=== PATIENT | female | born 1960 | race Caucasian/White ===

== ENCOUNTER 2017-10-31 13:50 | Emergency (ER) | payer OTHER ==
[2017-10-31 14:07] VITALS: BP 138/97; TEMP 98.7; BMI 27.1
--- NOTE | 2017-10-31 14:38 | CT ---
EXAM: Noncontrast CT of the paranasal sinuses HISTORY: Sinus congestion COMPARISON: 10/12/[address] TECHNIQUE: Noncontrast CT of the paranasal sinuses FINDINGS: The bilateral frontal sinuses are well-aerated with patent outflow tracts. There is moderate right m axillary sinus mucosal thickening with a suspected mucous retention cyst or polyp measuring 1.6 cm. A right maxillary sinus air-fluid level is also present. The right maxillary sinus outflow tract is obstructed. There is mild left maxillary sinus mucosal thickening with obstruction of the outflow tr act. There is mild bilateral sphenoid sinus mucosal thickening with obstruction of the outflow tract s. There is a left sphenoid sinus air-fluid level. There is mild to moderate bilateral ethmoid air cell mucosal thickening. The visualized portions of the mastoid air cells are well-aerated. The nasa l septum mildly deviates to the right. Operative change of the right sided calvarium are seen. IMPRESSION: Moderate paranasal sinus disease as described above, including right maxillary and left sphenoid acut e sinusitis.
--- NOTE | 2017-10-31 14:39 | CT ---
EXAM: CT BRAIN HISTORY: Fall TECHNIQUE: CT brain without intravenous contrast. 5-mm axial sections with Reformations. COMPARISON: 10/12/2010 FINDINGS: There is generalized atrophy. Stable mild ventriculomegaly which may in part be related to the degre e of atrophy. These findings are stable. Brain otherwise is unremarkable without evidence of hemorrhage or large vessel distribution recent is chemic infarction. There is no suggestion of acute hydrocephalus or subdural fluid collection. No m ass or mass effect. Redemonstration of postop changes of the right frontal temporal bone which are stable. No acute skul l fracture is seen. Mastoid processes are aerated. There is diffuse mild mucosal thickening of the paranasal sinuses. Fluid is seen within the right maxillary sinus possibly related to acute paranasa l sinusitis. IMPRESSION: No acute intracranial process or injury. No skull fracture.
--- NOTE | 2017-10-31 14:42 | CT ---
EXAM: Noncontrast CT of the chest HISTORY: Cough COMPARISON: 09/25/2014 chest x-ray TECHNIQUE: Noncontrast CT of the chest FINDINGS: A 2 mm right lower lobe pulmonary nodule si seen on axial image 42. There is mild bilateral upper lob e and lower lobe dependent atelectasis. There is additional minimal right lower lobe nondependent at electasis. No focal consolidation, pleural effusion or pneumothorax is seen. Heart size is normal. Atherosclerotic calcifications are present including coronary arteries. No med iastinal lymphadenopathy is seen. Calcified mediastinal and right hilar lymph nodes are present. The re is a right thyroid lobe nodule measuring approximately 1.3 cm. There is a remote left clavicle fracture. IMPRESSION: No acute cardiopulmonary findings. Mild atelectasis. Atherosclerosis including coronary arteries. 2 mm right lower lobe pulmonary nodule. If the patient is high risk, a follow-up CT in 12 months cou ld be considered. Right thyroid lobe nodule measuring approximately 1.3 cm. Follow-up thyroid ultrasound is recommende d. Evidence of prior granulomatous infection.
--- NOTE | 2017-10-31 15:02 | ED.PDOC ---
General ED Provider: Dr. KARISSA COOK-ER Chief Complaint: Cough Stated Complaint: penny been coughing--i smoke Time Seen by Physician: 13:55 Mode of Arrival: Walk-In Information Source: Patient, Family Exam Limitations: No limitations Primary Care Provider: COURTNEY DE LOS SANTOS Nursing and Triage Documentation Reviewed and Agree: Yes Reviewed sepsis parameters & appropriate labs ordered?: Yes System Inflammatory Response Syndrome: Not Applicable Sepsis Protocol: For patient's 13 years and over: Temp is 96.8 and below OR 101 and greater Pulse >90 BPM Resp >20/minute Acutely Altered Mental Status Are patient's symptoms suggestive of a new infection, such as: -Pneumonia -Skin, Soft Tissue -Endocarditis -UTI -Bone, Joint Infection -Implantable Device -Acute Abdominal Infection -Wound Infection -Meningitis -Blood Stream Catheter Infection -Unknown Respiratory Complaint Exam - Respiratory Complaint/Exam Onset/Duration: 7 days Symptoms Are: Still present Timing: Intermittent Initial Severity: Mild Current Severity: Moderate Location: Nose, Chest Character: Reports: Productive cough Aggravating: Reports: URI Alleviating: Reports: None. Denies: Antibiotics Associated Signs and Symptoms: Reports: URI, Nasal congestion, Sinus discomfort. Denies: Rapid breathing, Dyspnea, Fever, Chills, Pleuritic chest pain, Wheezing, Hemoptysis, Dizziness, Calf pain, Calf swelling, Edema, Hoarseness, Vomiting, Sore throat, Weight loss, Decreased oral intake, Increased thirst, Increased appetite, Increased urination History of Healthcare-Acquired Pneumonia: No Status Asthmaticus Risk Factors: Reports: None Home Oxygen Use: No Recent Stress Test: No Recent Echo/LV Function: No Current Antibiotic Use: No Current Asthma Medication Use: No Respiratory Distress: None Inadequate Respiratory Effort: No Dysphagia Present: No Stridor Present: No JVD Present: No Accessory Muscle Use: No Retractions: Not Present Diminished Breath Sounds: No Sinus Tenderness: Maxillary Grunting Respirations: No Kussmaul Respirations: No Differential Diagnoses: Pneumonia, Bronchitis Review of Systems - Review Of Systems Constitutional: Reports: No symptoms Eyes: Reports: No symptoms Ears, Nose, Mouth, Throat: Reports: Nose discharge Respiratory: Reports: Cough Cardiac: Reports: No symptoms GI: Reports: No symptoms : Reports: No symptoms Musculoskeletal: Reports: No symptoms Skin: Reports: No symptoms Neurological: Reports: No symptoms Endocrine: Reports: No symptoms Hematologic/Lymphatic: Reports: No symptoms All Other Systems: Reviewed and Negative Past Medical History - Past Medical History Previously Healthy: No Endocrine: Reports: Unknown Cardiovascular: Reports: Unknown Respiratory: Reports: Unknown Hematological: Reports: Unknown Gastrointestinal: Reports: Unknown Genitourinary: Reports: Unknown Neuro/Psych: Reports: Unknown Musculoskeletal: Reports: Unknown Cancer: Reports: Unknown Last Menstrual Period: hysterectomy - Surgical History General Surgical History: Reports: Hysterectomy - Family History Family History: Reports: Unknown - Social History Smoking Status: Current every day smoker, Light tobacco smoker Hx Substance Use: No Alcohol Screening: Occasionally Physical Exam - Physical Exam Appearance: Well-appearing, No pain distress, Well-nourished Eyes: LORI, EOMI, Conjunctiva clear ENT: Rhinorrhea Neck: Supple Respiratory: Rhonchi Cardiovascular: RRR GI/: Soft, Nontender, No masses, Bowel sounds normal, No Organomegaly Musculoskeletal: Normal strength Skin: Warm, Dry, Normal color Neurological: Sensation intact, Motor intact, Reflexes intact, Cranial nerves intact, Alert, Oriented Psychiatric: Affect appropriate, Mood appropriate Interpretation - Radiology Interpretation Radiology Interpretation By: Radiologist Radiology Results: Positive Exam Interpreted: CT Scan Critical Care Note - Critical Care Note Total Time (mins): 0 Course - Course Orders, Labs, Meds: Orders Category Date Time Status CT CHEST W/O CONTRAST Stat RADS 10/31/17 14:[address] HEAD W/O CONTRAST Stat RADS 10/31/17 14:[address] SINUSES W/O CONTRAST Stat RADS 10/31/17 14:13 Completed Vital Signs: Temp Pulse Resp BP Pulse Ox 10/31/17 13:52 98.7 F 101 H 20 138/97 H 93 L Departure - Departure Time of Disposition: 15:02 Disposition: HOME SELF-CARE Discharge Problem: Tobacco abuse, Lung nodule, Thyroid nodule Sinusitis Qualifiers: Sinusitis location: unspecified location Chronicity: acute Recurrence: non- recurrent Qualified Code(s): J01.90 - Acute sinusitis, unspecified Instructions: Sinusitis (ED) Condition: Good Pt referred to PMD for follow-up: Yes IPMP verified?: No Additional Instructions: augmentin 875mg bid x 10 days==medrol dose pack--tessalon perles 200mg tid prn cough --stop smoking--f/u with dr de los santos next week to discuss lung and thyroid nodule f/u Allergies/Adverse Reactions: Allergies antidepressant Adverse Reaction (Uncoded 10/31/17 14:06) Home Medications: Ambulatory Orders 1 [Unobtainable] 10/31/17 Disposition Discussed With: Patient, Family
== END 2017-10-31 15:23 | disposition home or self-care (01) ==
LOC: ED 13:50
DX: J01.90 Acute sinusitis, unspecified (principal); R91.1 Solitary pulmonary nodule; E04.1 Nontoxic single thyroid nodule; R05 Cough; F17.210 Nicotine dependence, cigarettes, uncomplicated
CPT/HCPCS: 99283

== ENCOUNTER 2017-11-17 10:21 | Outpatient (CLI) ==
--- NOTE | 2017-11-17 11:36 | US ---
EXAM: Thyroid ultrasound History: Thyroid nodules. Comparison: Chest CT 10/31/2017 Technique: Multiple sonographic images through the thyroid gland were obtained. Color duplex Dopple r was used to interrogate vascular flow. Findings: The right lobe of the thyroid measures 4.8 cm x 1.7 cm x 1.8 cm and demonstrates a dominant 1.8 cm so lid nodule containing microcalcifications. Thyroid isthmus measures 0.3 cm in thickness. The left lobe of the thyroid measures 4.8 cm x 1.3 cm x 1.2 cm and demonstrates a 1.4 cm complex nodu le containing microcalcifications. No extrathyroidal masses are identified. The thyroid gland is not hypervascular. Impression: Dominant bilateral thyroid nodules as detailed above containing microcalcifications. Ti ssue sampling is recommended for both.
== END 2017-11-17 10:22 | disposition home or self-care (01) ==
LOC: RAD 10:21
PROVIDERS: ATTEND Family Medicine
DX: E04.1 Nontoxic single thyroid nodule (principal)

== ENCOUNTER 2018-03-04 09:04 | Outpatient (CLI) ==
[2018-03-04] MEDS ORDERED: ALBUTEROL 0.083% NEB NEB STA (09:28)
== END 2018-03-04 09:05 | disposition home or self-care (01) ==
LOC: CAR 09:04
PROVIDERS: ATTEND Family Medicine
DX: G50.0 Trigeminal neuralgia (principal); I50.32 Chronic diastolic (congestive) heart failure

== ENCOUNTER 2018-03-24 13:44 | Emergency (ER) | payer OTHER ==
[2018-03-24 13:51] VITALS: BP 121/82; TEMP 99.2; BMI 29.4
--- NOTE | 2018-03-24 14:33 | DI ---
EXAM: Three views of the left ankle HISTORY: Fall. COMPARISON: None FINDINGS: There is no cortical irregularity or displaced fracture of the left ankle. The joint space s maintained. Soft tissues are normal. There is no lytic or blastic lesion. There is soft tissue s welling of the lateral foot. The hind foot structures are unremarkable. IMPRESSION: No acute abnormality or displaced fracture of the left ankle with lateral foot swelling.
--- NOTE | 2018-03-24 14:35 | DI ---
Exam: Three views of the left foot. Comparison: None available. Reason for exam: Fall. FINDINGS: No acute fracture or malalignment. The joint spaces appear well maintained. No unexplain ed calcific soft tissue density or radiopaque retained foreign body. Impression: No acute fracture or dislocation is seen in the left foot.
--- NOTE | 2018-03-24 14:48 | ED.PDOC ---
General ED Provider: Dr. MAHNAZ PIRES Chief Complaint: Foot Pain/Injury Stated Complaint: foot/ ankle pain Time Seen by Physician: 14:00 (seen with nicky fu RN AT ALL TIMES ) Mode of Arrival: Walk-In Information Source: Patient Exam Limitations: No limitations Primary Care Provider: COURTNEY HENRY Nursing and Triage Documentation Reviewed and Agree: Yes Does patient meet sepsis criteria?: No System Inflammatory Response Syndrome: Not Applicable (NO ADDITIONAL INJURY OFFERED ) Sepsis Protocol: For patient's 13 years and over: Temp is 96.8 and below OR 101 and greater Pulse >90 BPM Resp >20/minute Acutely Altered Mental Status Are patient's symptoms suggestive of a new infection, such as: -Pneumonia -Skin, Soft Tissue -Endocarditis -UTI -Bone, Joint Infection -Implantable Device -Acute Abdominal Infection -Wound Infection -Meningitis -Blood Stream Catheter Infection -Unknown Musculoskeletal Complaint Exam - Ankle/Foot Complaint/Exam Location of Injury: Reports: Left, Ankle, Foot Mechanism of Injury: Reports: Trauma (BLUNT FORCE ) Onset/Duration: TODAY AT HOME BATH ROOM COMMODE Symptoms Are: Reports: Still present Onset of Pain: Reports: Immediate Initial Severity: Moderate Current Severity: Mild Location: Reports: Discrete (DORSAL LEFT FOOT MOSTLY) Character: Reports: Aching Aggravating: Reports: Movement Able to Bear Weight: Yes Associated Signs and Symptoms: Reports: Swelling, Redness, Bruising (FOOT DORSUM ONLY). Denies: Fever, Weakness, Numbness, Tingling Gout Risk Factors: Reports: >40 years old Related Surgical History: Reports: None Lower Extremity Findings: Present: Swelling, Ecchymosis Achilles Tendon Abnormality: No Tenderness: Present: Lateral malleolus, Midfoot Differential Diagnosis: Closed Fracture Review of Systems - Review Of Systems Constitutional: Reports: No symptoms Eyes: Reports: No symptoms Ears, Nose, Mouth, Throat: Reports: No symptoms Respiratory: Reports: No symptoms Cardiac: Reports: No symptoms GI: Reports: No symptoms : Reports: No symptoms Musculoskeletal: Reports: No symptoms Skin: Reports: Bruising (OF FOOT ) Neurological: Reports: No symptoms Endocrine: Reports: No symptoms Hematologic/Lymphatic: Reports: No symptoms All Other Systems: Reviewed and Negative Past Medical History - Past Medical History Previously Healthy: No Endocrine: Reports: Unknown Cardiovascular: Reports: Unknown Respiratory: Reports: Unknown Hematological: Reports: Unknown Gastrointestinal: Reports: Unknown Genitourinary: Reports: Unknown Neuro/Psych: Reports: Unknown Musculoskeletal: Reports: Unknown Cancer: Reports: Unknown Last Menstrual Period: hysterectomy - Surgical History General Surgical History: Reports: Hysterectomy - Family History Family History: Reports: Unknown - Social History Smoking Status: Current every day smoker, Light tobacco smoker Hx Substance Use: No Alcohol Screening: None Physical Exam - Physical Exam Appearance: Well-appearing, No pain distress, Well-nourished Eyes: LORI, EOMI, Conjunctiva clear ENT: Ears normal, Nose normal, Oropharynx normal Respiratory: Airway patent, Breath sounds clear, Breath sounds equal, Respirations nonlabored Cardiovascular: RRR, Pulses normal, No rub, No murmur GI/: Soft, Nontender, No masses, Bowel sounds normal, No Organomegaly Musculoskeletal: Normal strength, ROM intact, No edema, No calf tenderness Skin: Warm, Dry (CONTUSION LEFT FOOT) Neurological: Sensation intact, Motor intact, Reflexes intact, Cranial nerves intact, Alert, Oriented Psychiatric: Affect appropriate, Mood appropriate Interpretation - Radiology Interpretation Radiology Interpretation By: Radiologist Radiology Results: No acute changes Critical Care Note - Critical Care Note Total Time (mins): 0 Course - Course Orders, Labs, Meds: Orders Category Date Time Status ANKLE, LEFT MIN 3 VIEWS Stat RADS 03/24/18 14:10 Completed FOOT, LEFT 3 VIEWS Stat RADS 03/24/18 14:10 Completed Vital Signs: Temp Pulse Resp BP Pulse Ox 03/24/18 13:44 99.2 F 102 H 20 121/82 92 L Departure - Departure Time of Disposition: 14:48 Disposition: HOME SELF-CARE Discharge Problem: Contusion of left foot Qualifiers: Encounter type: initial encounter Qualified Code(s): S90.32XA - Contusion of left foot, initial encounter Instructions: Foot Contusion (ED) Condition: Good Pt referred to PMD for follow-up: Yes IPMP verified?: No Additional Instructions: Please call your Family Physician as soon as possible to schedule a follow-up appointment.PLEASE USE CRUTCHES AND SEEN YOUR MD Allergies/Adverse Reactions: Allergies antidepressant Adverse Reaction (Uncoded 10/31/17 14:06) Home Medications: Ambulatory Orders Diazepam [Valium] 10 mg PO TID 03/24/18 Gabapentin 300 mg PO DIRECTED 03/24/18 Levomilnacipran HCl [Fetzima] 80 mg PO BEDTIME 03/24/18 Oxycodone-Acetaminophen 10-325 [Percocet 10-325] 1 tab PO TID 03/24/18 Simvastatin 20 mg PO DAILY 03/24/18 Disposition Discussed With: Patient, Family
== END 2018-03-24 15:13 | disposition home or self-care (01) ==
LOC: ED 13:44
DX: S90.32XA Contusion of left foot, initial encounter (principal); W22.8XXA Striking against or struck by other objects, initial encounter; F17.210 Nicotine dependence, cigarettes, uncomplicated
CPT/HCPCS: 99283

== ENCOUNTER 2018-07-05 12:19 | Outpatient (CLI) | payer OTHER | END 2018-07-05 12:33 | disposition short-term general hospital (02) | LOC: AMBL 12:19 | PROVIDERS: ATTEND Internal Medicine | DX: I10 Essential (primary) hypertension (principal); R07.9 Chest pain, unspecified; Z79.899 Other long term (current) drug therapy ==

== ENCOUNTER 2018-07-27 09:36 | Outpatient (CLI) | payer OTHER ==
--- NOTE | 2018-07-27 10:11 | US ---
EXAM: Right upper quadrant abdominal ultrasound. History: Abdominal pain. Technique: Multiple sonographic images through the abdomen were obtained. Color duplex Doppler was used to interrogate vascular flow. Findings: The visualized pancreas demonstrates no abnormality. The liver is not enlarged. No focal liver lesi ons identified sonographically. There is antegrade flow within main portal vein. The liver is echog enic compared to the adjacent right renal cortex. Limited visualization of the right kidney demonstrates no abnormality. No shadowing gallstones. Gallbladder wall is not thickened. Common bile duct measures 0.3 cm in kanika iber. Impression: 1. No acute sonographic findings. 2. Hepatic steatosis
--- NOTE | 2018-07-28 08:50 | MAMMO ---
EXAM: Bilateral digital screening mammogram (2-D and 3-D) History: Screening Comparison: Bilateral mammogram 07/09/2011 Findings: MLO and CC views of bilateral breasts demonstrate heterogeneously dense breast parenchyma which can obscure small lesions. CAD was reviewed by the radiologist. Tomosynthesis was performed. Stable benign bilateral breast calcifications. Focal asymmetry within the right breast near the axi llary tail and only seen on the MLO view. Impression: Indeterminate right breast asymmetry in the axillary tail and only seen on the MLO view. Recommend further evaluation with spot compression views with tomosynthesis and a ML view with alysha synthesis. BIRADS 0, incomplete, needs further evaluation
== END 2018-07-27 09:37 | disposition home or self-care (01) ==
LOC: RAD 09:36
PROVIDERS: ATTEND Family Medicine
DX: Z12.31 Encounter for screening mammogram for malignant neoplasm of breast (principal); R10.9 Unspecified abdominal pain

== ENCOUNTER 2018-08-03 08:03 | Outpatient (CLI) ==
--- NOTE | 2018-08-03 10:35 | NM ---
Exam: Hepatobiliary scan. Date: 08/03/2018. Comparison: None. HISTORY: Abdominal pain. TECHNIQUE: The patient was injected 5 mCi of technetium 99m mebrofenin and imaging over the abdomen was obtained for 1 hour. The patient was then orally administered 12 ounces of Boost Plus and imagin g carried out for additional 30 minutes. Gallbladder ejection fraction was calculated. FINDINGS: There is prompt uptake extraction and excretion of the radiotracer by the hepatocytes. Ac tivity is identified in the small bowel by 10 minutes and in the gallbladder by 20 minutes. The gall bladder ejection fraction is 40%. Impression: Normal hepatobiliary scan and gallbladder ejection fraction.
== END 2018-08-03 08:04 | disposition home or self-care (01) ==
LOC: RAD 08:03
PROVIDERS: ATTEND Family Medicine
DX: R10.9 Unspecified abdominal pain (principal)

== ENCOUNTER 2018-08-25 09:56 | Outpatient (CLI) | payer OTHER ==
--- NOTE | 2018-08-25 11:25 | US ---
EXAM: Digital diagnostic right breast mammogram and ultrasound. HISTORY: Right breast nodule COMPARISON: Mammogram 07/27/2018 FINDINGS: There is the nodule in the posterior right breast redemonstrated with central area of fat. No additi onal abnormality is identified. Ultrasound demonstrates a peripherally hypoechoic centrally hyperechoic nodule at two to three o'cloc k 10 cm from the nipple measuring 1.5 x 0.6 x 0.8 cm. There is color Doppler noted centrally in the vascular stalk. This is most consistent with a lymph node. IMPRESSION: Findings are consistent with a intramammary lymph node RECOMMENDATION: Returned to normal screening mammogram BIRADS category II: Benign findings
== END 2018-08-25 09:57 | disposition home or self-care (01) ==
LOC: RAD 09:56
PROVIDERS: ATTEND Family Medicine
DX: R92.2 Inconclusive mammogram (principal)

== ENCOUNTER 2018-09-28 14:00 | Outpatient (RCR) ==
--- NOTE | 2018-09-22 09:24 | RS.OPPTEV2 ---
Date of Note: 09/21/18 Visit #: 1 Number of visits approved by Insurance: n/a Date of Evaluation: 09/21/18 Payer Source: MEDICARE Surgery Performed?: No Treatment Diagnosis: low back pain History of Condition/Mechanism of Injury:: pt with history of LBP which began approx 1 month ago. No definite injury noted Prior Level of Function.....Patient was independent with: Work/Vocation, Ambulation/Mobility, Community Integration/Access Functional Limitations: Reaching, Pushing, Standing, Bending, Squatting, Ambulation Current Subjective/complaints:: pt states that she has had low back pain which has caused her RLE to "kick by itself" States she hurts mostly when she is standing/walking. Treatment Side (optional): N/A *Precautions: n/a Medical History Medical History: Hypertension, Arthritis Medical History Comments:: trigeminal neuralgia Surgical History: Hysterectomy Surgical History Comments:: stapedectomy left and right, craniotomy 2009 Hx Home Medications: oxycodone, valium, as well as multiple other meds, pt unable to name all at this time Patient's Goals: decrease low back pain Pain Assessment - Pain Description Pain Location: low back pain Pain Description: Aching Current Pain Intensity: 1 Worst Pain Intensity: 10 Functional Outcome Measure Oswestry LBP: 37 - G Codes & Severity Modifier G Codes & Modifier: n/a Source of G Code score: n/a Observation - Observation Inspection: piriformis tight BLE. RLE longer than LLE. pt appears possibly overmedicated Posture: Forward Head, Rounded Shoulders, Increased Thoracic Kyphosis Comments: pt stands with hips and knees flexed she reports is due to pain. Handedness: Right Gait - Gait Pattern General Gait Pattern Observation: Decrease Stride Lngth (R), Decrease Stride Lngth (L) Gait Comments: pt amb with decreased step length, flexed posture, General Range of Motion: BUE WFL's with pain with shld flex. BLE WFL's with pain with knee ROM Muscle Strength: BUE shld flex 4-/5, elbow flex/ext 4+/5. BLE hip flex 4/5, knee flex 4+/5, ext 4/5, ankle Df/PF 4/5 - ROM Lumbar Flexion: Hand reach to patellae Sidebending to Left: Reach to Lateral Joint Line Sidebending to Right: Reach to Lateral Joint Line Lumbar Spine ROM Limitations: Soft Tissue Tightness, Muscle Weakness, Pain - Strength Trunk Extension: 4- Good- Trunk Flexion: 4- Good- Trunk Lateral Flexion: 4- Good- Trunk Rotation: 4- Good- - Special Tests AAMIR Test: Positive Left, Positive Right SLR Test: Positive Left, Positive Right SI Joint Compression: Positive Palpation Palpation Findings: Tenderness, Trigger Point, Muscle Guarding Comments:: pt with tenderness, muscle guarding lower lumbar upper sacral area with trigger points noted in R SI joint Sensation - Sensation Right Upper Extremity: Intact/Normal Left Upper Extremity: Intact/Normal Right Lower Extremity: Intact/Normal Left Lower Extremity: Intact/Normal Balance - Sitting Balance Static Sitting Balance: Good Dynamic Sitting Balance: Good - Standing Balance Static Standing Balance: Good Dynamic Standing Balance: Fair - Heat/Cryotherapy Treatment: Hot Pack Comments:: lumbar Interventions - Exercise/Activities/Manual Therapy Exercises/Activities: pt performed pelvic tilt, knee to chest, piriformis stretch. pt performed muscle energy with RLE in ext LLE in flex. Manual Therapy: n/a - Charges Timed Code Treatment Minutes: 46 Total Treatment Time: 61 Procedures billed for this date of service:: eval med, ex, hot pack EVALUATION COMPLEXITY LEVEL EVALUATION COMPLEXITY LEVEL: HISTORY: Medium, EXAM OF BODY SYSTEMS: Medium, CLINICAL PRESENTATION: Medium, CLINICAL DECISION MAKING: Medium Assessment Assessment: pt presents with low back pain which increases with lumbar ROM, BLE piriformis tightness, as well as leg length discrepancy RLE longer than LLE. pt also with decreased strength. Patient Education: Home Exercise Program, Education of Plan of Care Rehab Potential: Good Short Term Goals Goal #1: pt independent with initial HEP Goal to be met by: 10/12/18 Goal #2: pt with decreased piriformis tightness Goal to be met by: 10/12/18 Goal #3: Improve lumbar ROM WFL's w less pain Goal to be met by: 10/12/18 Goal #4: pt amb with improved posture without hips/knees flexed Detention Goals Goal #1: pt report ability to perform normal household duties w less pain Goal to be met by: 11/02/18 Goal #2: pt rate pain in lumbar spine <3/10 with activity Goal to be met by: 11/02/18 Plan - Treatment to be Provided Procedures: Therapeutic Exercises, Neuromuscular Rehab, Manual Therapy, Massage , Patient Education Modalities: Electrical Stimulation, Ultrasound/Phonophoresis, Cryotherapy, Hot Packs, Mechanical Traction - Treatment Plan Frequency: 2-3x a week Duration: 6 weeks Dates of Typing Secretary Goals: 11/02/18 Expiration date of current Insurance Approval:: n/a - Treatment Code (1) Low back pain Code(s): M54.5 - LOW BACK PAIN Qualifiers: Chronicity: chronic Back pain laterality: unspecified Sciatica presence: unspecified whether sciatica present Qualified Code(s): M54.5 - Low back pain ; G89.29 - Other chronic pain (2) Muscle tightness Code(s): M62.89 - OTHER SPECIFIED DISORDERS OF MUSCLE (3) Muscle weakness Code(s): M62.81 - MUSCLE WEAKNESS (GENERALIZED)
--- NOTE | 2018-09-23 16:08 | RS.OPPTDN ---
Subjective Date of Note: 09/23/18 Visit #: 2 Number of visits approved by Insurance: na Date of Evaluation: 09/21/18 Payer Source: MEDICARE Treatment Diagnosis: low back pain Current Subjective/complaints:: Patient reports soreness in the low back, pointing to the SI region when asked where she hurts.She reports not sleeping well due to pain,re-positions herself frequently. *Precautions: n/a Pain Assessment - Pain Description Pain Location: lumbar Pain Description: Dull, Aching Current Pain Intensity: 3/10 - Treatment Modality: Ultrasound Parameters/Method Applied: 10 mins.,continuous mode @ 1.5 w/cm2 ,to lumbar area. Patient Position: Left Sidelying - Heat/Cryotherapy Treatment: Hot Pack (20 mins. prior to US and exercises) Interventions - Exercise/Activities/Manual Therapy Exercises/Activities: 20 mins. pelvic tilt, SKTC,DKTC, 90/90 hamstring stretches ,piriformis stretch,LTR. Total minutes of Exercise: 20 Manual Therapy: n/a Total minutes of Manual Therapy: 0 HOME EXERCISE PROGRAM: Pelvic tilt,SKTC,DKTC,90/90 hamstring stretches , piriformis stretch,LTR. - Charges Timed Code Treatment Minutes: 30 Total Treatment Time: 50 Procedures billed for this date of service:: hp,US,ex Assessment: Patient tolerates the exercises well today,no elevation of back pain.She has good hamstring extensibility bilaterally.She s attentive to recom mendations for HEP and pain management. Patient Education: Education of diagnosis, Body/Joint mechanics, Home Exercise Program, Home Safety, Activity Modification, Education of Plan of Care Patient demonstrates compliance with HEP?: Yes Short Term Goals Goal #1: pt independent with initial HEP Goal to be met by: 10/12/18 Progress towards Goal:: Progressing Goal #2: pt with decreased piriformis tightness Goal to be met by: 10/12/18 Goal #3: Improve lumbar ROM WFL's w less pain Goal to be met by: 10/12/18 Progress towards Goal:: Progressing Goal #4: pt amb with improved posture without hips/knees flexed Retirement Goals Goal #1: pt report ability to perform normal household duties w less pain Goal to be met by: 11/02/18 Goal #2: pt rate pain in lumbar spine <3/10 with activity Goal to be met by: 11/02/18 Plan Dates of Retirement Goals: 11/02/18 Expiration date of current Insurance Approval:: na PLAN: Cont. PT to reduce /eliminate LBP.
--- NOTE | 2018-09-28 09:44 | RS.CXNS ---
Date of scheduled appointment: 09/27/18 Type: Cancel (Called ,is at [facility] office ,has appt. for PT tomorrow.)
--- NOTE | 2018-09-28 15:23 | RS.OPPTDN ---
Subjective Date of Note: 09/28/18 Visit #: 3 Number of visits approved by Insurance: na Date of Evaluation: 09/21/18 Payer Source: MEDICARE Treatment Diagnosis: low back pain Current Subjective/complaints:: Patient reports hurting more today on both sides of her low back. *Precautions: n/a Pain Assessment - Pain Description Pain Location: lumbar Pain Description: Dull, Aching Current Pain Intensity: 6/10 Other Comments regarding Pain:: decreased to 3/10 after treatment today - Treatment Modality: Ultrasound Parameters/Method Applied: 10 mins.,cont. mode to lumbar @ 1.5 w/cm2 Patient Position: Left Sidelying - Heat/Cryotherapy Treatment: Hot Pack (20 mins. prior to US and exercises) Interventions - Exercise/Activities/Manual Therapy Exercises/Activities: 25 mins. pelvic tilt, SKTC,DKTC, 90/90 hamstring stretches ,piriformis stretch,LTR.,bridging,IT band stretches. Total minutes of Exercise: 25 Manual Therapy: n/a Total minutes of Manual Therapy: 0 HOME EXERCISE PROGRAM: Pelvic tilt,SKTC,DKTC,90/90 hamstring stretches , piriformis stretch,LTR. - Charges Timed Code Treatment Minutes: 35 Total Treatment Time: 55 Procedures billed for this date of service:: hp,US,ex 2 Assessment: Patient tolerates the exercises well today,except the bridging causes muscle cramps in the hamstrings,but no back pain elevated.She reports significant relief in the low back after treatment (dropped from 6/10 to 3/10). Patient Education: Education of diagnosis, Body/Joint mechanics, Home Exercise Program, Home Safety, Activity Modification, Education of Plan of Care Patient demonstrates compliance with HEP?: Yes Short Term Goals Goal #1: pt independent with initial HEP Goal to be met by: 10/12/18 Progress towards Goal:: Progressing Goal #2: pt with decreased piriformis tightness Goal to be met by: 10/12/18 Progress towards Goal:: Progressing Goal #3: Improve lumbar ROM WFL's w less pain Goal to be met by: 10/12/18 Progress towards Goal:: Progressing Goal #4: pt amb with improved posture without hips/knees flexed Progress towards Goal:: Progressing Senior Living Goals Goal #1: pt report ability to perform normal household duties w less pain Goal to be met by: 05/14/19 Goal #2: pt rate pain in lumbar spine <3/10 with activity Goal to be met by: 11/02/18 Plan Dates of [employer] Professor Goals: 11/02/18 Expiration date of current Insurance Approval:: na PLAN: Cont. skilled PT to reduce/eliminate LBP,return to ADL's comfortably.
== END 2018-10-19 23:59 ==
PROVIDERS: ATTEND Orthopaedic Surgery Orthopaedic Surgery of the Spine
DX: M54.5 Low back pain (principal)

== ENCOUNTER 2018-10-29 08:05 | Outpatient (CLI) ==
--- NOTE | 2018-10-29 10:42 | CT ---
EXAM: CT of the chest with contrast History: Follow-up lung nodules. Comparison: Chest CT 10/31/2017 Technique: Multiplanar CT images through the thorax were obtained following administration of IV con trast Findings: Heart size is normal. No pericardial effusion. Great vessels are unremarkable. No thora cic lymphadenopathy. Calcified granulomas are again seen within the thorax. No change in the right basilar subsegmental atelectasis. No consolidation. No pleural fluid and no pneumothorax. No suspi cious lung masses or lung nodules. Within the visualized upper abdomen, no acute findings. There is subacute healing fractures of the m anubrium and sternal body which are mildly displaced. There are subacute compression fractures invol ving superior endplates of T3, T4, T5 and T6 with sclerosis of the fracture fragment margins. Impression: 1. No acute intrathoracic process. 2. No suspicious lung masses or lung nodules. 3. Healing sternal fractures. 4. Subacute compression fractures within the thoracic spine.
== END 2018-10-29 08:06 | disposition home or self-care (01) ==
LOC: RAD 08:05
PROVIDERS: ATTEND Family Medicine
DX: R93.89 Abnormal findings on diagnostic imaging of other specified body structures (principal)